=== PATIENT | female | born 1985 | race Caucasian/White ===

== ENCOUNTER 2016-09-17 15:37 | Emergency (ER) | payer OTHER ==
[~2016-09-17] VITALS: Ht 170.2 cm; Wt 73.9 kg
[~2016-09-17 15:37] MED LIST: AMOXICILLI400 MG/5 M PO; AMOXIL 875 MG875 MG PO; AMOXIL500 MG PO; EXCEDRIN EXTRA1 SGL PO; IBU800 MG PO; MEDROL4 M2 PO; MEDROXYPRO150 MG/11 IM; PERCOCET 325 MG1 TA2 PO; PREDNISONE10 MG PO; TYLENOL #31 TAB PO; VENLAFAXINE HC150 MG PO; VITAMIN C500 M6 PO
--- NOTE | 2016-09-17 16:45 | ED UPPER/LOWER EXTREMITY COMPL ---
History of Present Illness General Chief Complaint: Laceration Procedure Stated Complaint: LAC TO RIGHT INDEX FINGER Source: patient Exam Limitations: no limitations Vital Signs & Intake/Output Vital Signs & Intake/Output Vital Signs Date Time Temp Pulse Resp B/P B/P Pulse O2 O2 Flow FiO2 Mean Ox Delivery Rate 09/17 1715 98.0 88 18 120/70 98 Room Air 09/17 1546 97.1 99 20 127/90 99 Room Air Allergies Coded Allergies: NO KNOWN ALLERGIES (04/20/16) Reconcile Medications Ascorbate Calcium (Vitamin C) (Unknown Strength) TABLET (Unknown Dose) PO DAILY SUPPLEMENT (Reported) Medroxyprogesterone Acetate 150 MG/ML SYRINGE 1 ML IM Q3M CONTROL ( Reported) Methylprednisolone. (Medrol) 4 MG TAB.DS.PK 1 DP PO AD INFLAMMATION/ radiculopathy Venlafaxine HCl (Venlafaxine HCl ER) 150 MG CAP.ER.24H 1 CAP PO DAILY ANXIETY (Reported) Triage Note: PT TO ED C/O LAC TO RIGHT INDEX FINGER FROM [place], SUSTAINED YESTERDAY. STATES IT KEEPS OPENING UP. THINKS UP TO DATE WITH TETANUS. NO BLEEDING NOTED AT THIS TIME. Triage Nurses Notes Reviewed? yes Onset: Abrupt Timing: recent history Severity: mild Severity Numbers: 1 Method of Injury: laceration : No Patient currently breastfeeds: No HPI: Patient is a 30-year-old female who presents emergency room seen that yesterday while reaching in the garbage she cut the ventral aspect of her right fourth digit of her finger resulting in a laceration in which leading was controlled prior to arrival however patient is concerned of the wound. No medications given prior to arrival. Past History Travel History Traveled to [place] past 21 day No Medical History Any Pertinent Medical History? 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 No Review of Systems Review of Systems Constitutional: Reports: no symptoms. EENTM: Reports: no symptoms. Respiratory: Reports: no symptoms. Cardiovascular: Reports: no symptoms. Gastrointestinal/Abdominal: Reports: no symptoms. Genitourinary: Reports: no symptoms. Musculoskeletal: Reports: see HPI. Skin: Reports: see HPI. Neurological/Psychological: Reports: no symptoms. Hematologic/Endocrine: Reports: see HPI, bleeding. Immunological: Reports: no symptoms. All Other Systems: Reviewed and Negative Physical Exam Physical Exam General Appearance: no apparent distress, alert, comfortable Neurologic/Tendon: normal sensation, normal motor functions, normal tendon functions, responds to pain, no evidence tendon injury, no pulse deficit Skin: normal color, warm/dry Comments: Well-developed well-nourished no apparent distress. HEENT: Atraumatic, extraocular motion intact Neck: Supple, no lymphadenopathy Back: Nontender Respiratory: No respiratory distress Neuro: Alert and oriented x3 Psych: Mood affect normal, normal memory normal judgment. Diagram Hands Front 1) Clean linear superficial non-gaping linear laceration noted full active range of motion and resisted range of motion noted flexion and extension no tendon deficit no exposed bone no active bleeding Progress Differential Diagnosis: arterial insufficiency, compartment syndrome, contusion, dislocation, DVT, fracture, gout, septic arthritis, sprain, tendon injury Plan of Care: The laceration site was cleaned with peroxide and sterile water I used benzoin applied to the margins in which 3 Steri-Strips were applied margins were revised around the Steri-Strip. No concerns of tendon deficit Departure Departure Disposition: HOME OR SELF CARE Condition: Stable Clinical Impression Primary Impression: Laceration of right index finger Referrals: TIAN RUBIO APRN (PCP/Family) Additional Instructions: As discussed the Steri-Strips that have been applied to YOU in the emergency room will fall off in approximately 4-5 days, keep area dry and clean YOU can with the bandages provided to the emergency room. Please check the wound once a day and if you note signs of infection such as redness, pain, swelling, discharge return to emergency room immediately. Departure Forms: Customer Survey General Discharge Information
[2016-09-17 17:15] VITALS: BP 120/70
== END 2016-09-17 17:16 ==
LOC: ERH 15:37
DX: S61.210A Laceration without foreign body of right index finger without damage to nail, initial encounter (principal); W45.8XXA Other foreign body or object entering through skin, initial encounter; Y93.89 Activity, other specified; Y92.9 Unspecified place or not applicable